=== PATIENT | male | born 1975 | race Two or more races ===

== ENCOUNTER → 2016-10-19 | Outpatient (CLI) | payer BC ==
[2016-10-19 08:27] LABS: Basophils # (auto) 0 uL; Basophils % (auto) 0.4 % (0.0-2.0); Eosinophils # (auto) 0.1 uL; Eosinophils % (auto) 1.8 % (0.0-7.0); Hematocrit 47.7 % (41.0-53.0); Hemoglobin 15.9 g/dL (13.5-17.5); Lymphocytes # (auto) 2.9 uL; Lymphocytes % (auto) 34.6 % (10.0-50.0); Mean Corpuscular Hemoglobin 28.4 pg (28.0-32.0); Mean Corpuscular Hgb Conc. 33.3 g/dL (32.0-36.0); Mean Corpuscular Volume 85.3 fL (80.0-100.0); Monocytes # (auto) 0.6 uL; Monocytes % (auto) 7.5 % (0.0-12.0); Neutrophils # (auto) 4.7 uL; Neutrophils % (auto) 55.7 % (37.0-80.0); Platelet Count (auto) 279 10^3/uL (140-450); Red Cell Distribution Width 13.7 % (11.6-16.0); White Blood Cell 8.4 10^3/uL (4.4-10.8)
[2016-10-19 08:45] LABS: Urine Bilirubin Negative (Negative); Urine Blood Negative /uL (Negative); Urine Color Yellow (Yellow); Urine Glucose Normal (Normal); Urine Ketone Negative (Negative); Urine Mucus FEW (None Seen); Urine Nitrite Negative (Negative); Urine RBC <1 /hpf (0 - 3); Urine Urobilinogen Normal (Negative); Urine pH 5.5 (5.0-8.0)
[2016-10-19 09:04] LABS: Albumin 3.7 g/dL (3.4-5.0); BUN/Creatinine Ratio 16.7; Calcium 8.7 mg/dL (8.5-10.1); Total Protein 8.1 g/dL (6.4-8.2)
== END | disposition home or self-care (01) ==
LOC: LAB 07:42
DX: E78.5 Hyperlipidemia, unspecified (principal)
CPT/HCPCS: 36415; 80053; 80061; 81001; 84443; 85025

== ENCOUNTER 2017-06-01 20:15 | Emergency (ER) | payer BC ==
[~2017-06-01] VITALS: Ht 172.7 cm; Wt 108.9 kg
[2017-06-01 21:15] LABS: Basophils # (auto) 0 uL; Basophils % (auto) 0.3 % (0.0-2.0); Eosinophils # (auto) 0 uL; Eosinophils % (auto) 0.4 % (0.0-7.0); Lymphocytes % (auto) 10.9 % (10.0-50.0); Mean Corpuscular Hemoglobin 29.2 pg (28.0-32.0); Mean Corpuscular Hgb Conc. 33.9 g/dL (32.0-36.0); Mean Platelet Volume 7.5 fL (6.9-10.8); Monocytes # (auto) 1.2 uL; Neutrophils # (auto) 6.6 uL; Neutrophils % (auto) 74.4 % (37.0-80.0); Nucleated Red Blood Cells % 0.1 %; Platelet Count (auto) 273 10^3/uL (140-450); Red Cell Distribution Width 15.6 % (11.8-14.3); White Blood Cell 8.9 10^3/uL (4.4-10.8)
[2017-06-01 21:26] LABS: Urine Bilirubin Negative (Negative); Urine Blood Negative /uL (Negative); Urine Color Yellow (Yellow); Urine Glucose Normal (Normal); Urine Ketone Negative (Negative); Urine Mucus FEW (None Seen); Urine Nitrite Negative (Negative); Urine RBC 1 /hpf (0 - 3); Urine Squamous Epithelial Cell FEW /hpf (<5)
[2017-06-01 21:34] LABS: Albumin 3.4 g/dL (3.4-5.0); Calcium 8.3 mg/dL (8.5-10.1); Magnesium 2.1 mg/dL (1.6-2.6)
[2017-06-01 21:36] LABS: BUN/Creatinine Ratio 9.3
[2017-06-01 21:38] LABS: Bilirubin, Total 0.8 mg/dL (0.2-1.0); Total Protein 7.9 g/dL (6.4-8.2)
[2017-06-02 02:00] VITALS: BP 150/99
== END 2017-06-02 02:08 | disposition home or self-care (01) ==
LOC: ER 20:18
DX: R14.1 Gas pain (principal); K21.9 Gastro-esophageal reflux disease without esophagitis; J45.909 Unspecified asthma, uncomplicated; Z91.041 Radiographic dye allergy status
CPT/HCPCS: 36415; 74176; 80053; 81001; 83690; 83735; 85025

== ENCOUNTER 2020-06-28 13:52 | Inpatient (IN) | payer BC, OTHER ==
[~2020-06-28] VITALS: Ht 172.7 cm; Wt 109.0 kg
[2020-06-28] MEDS ORDERED: levoFLOXacin 500MG 100 ML IV ONE (14:00)
[2020-06-28] MEDS ORDERED: cefTRIAXone 1GM/50ML D5W 50 ML IV ONE (14:00)
[2020-06-28] MEDS ORDERED: methylPREDNISolone SOD SUCC 125 MG/2 ML VL IV ONE ×2 (14:00→15:15)
[2020-06-28 14:52] LABS: Basophils # (auto) 0 10 ^3/uL (0-0.2); Eosinophils # (auto) 0 10 ^3/uL (0-0.8); Monocytes # (auto) 0.9 10 ^3/uL (0-1.3); Monocytes % (auto) 6.1 % (0.0-12.0); Red Cell Distribution Width 13.9 % (11.8-14.3)
[2020-06-28 14:54] LABS: Basophils % (auto) 0.1 % (0.0-2.0); Hematocrit 53.1 % (41.0-53.0); Hemoglobin 18.3 g/dL (13.5-17.5); Lymphocytes % (auto) 7.2 % (10.0-50.0); Mean Corpuscular Hemoglobin 29.5 pg (28.0-32.0); Mean Corpuscular Hgb Conc. 34.4 g/dL (32.0-36.0); Mean Corpuscular Volume 85.8 fL (80.0-100.0); Neutrophils # (auto) 12.5 10 ^3/uL (1.6-8.6); Neutrophils % (auto) 86.6 % (37.0-80.0); Nucleated Red Blood Cells % 0.4 %; Platelet Count (auto) 251 10^3/uL (140-450); Red Blood Cells 6.19 10^6/uL (4.5-5.90); White Blood Cell 14.4 10^3/uL (4.4-10.8)
[2020-06-28 15:09] LABS: Alanine Aminotransferase 49 U/L (16-61); Albumin 3.2 g/dL (3.4-5.0); Anion Gap 4 (5-15); Blood Urea Nitrogen 17 mg/dL (7-18); Calcium 8.7 mg/dL (8.5-10.1); Carbon Dioxide 28 mmol/L (21-32); Chloride 101 mmol/L (98-107); Glucose 84 mg/dL (74-106); Potassium 3.5 mmol/L (3.5-5.1); Sodium 133 mmol/L (136-145)
[2020-06-28 15:18] LABS: Alkaline Phosphatase 99 U/L (45-117); Aspartate Aminotransferase 21 U/L (15-37); BUN/Creatinine Ratio 20.2; Bilirubin, Total 1.2 mg/dL (0.2-1.0); GFR African American 128 mL/min; GFR Non-African American 106 mL/min; Total Protein 8.5 g/dL (6.4-8.2)
[2020-06-28] MEDS ORDERED: ONDANSETRON HCL 4 MG/2 ML VIAL IV ONE (15:30)
[2020-06-28] MEDS ORDERED: MORPHINE SULFATE 4 MG/ML SYR/VIAL IV ONE (15:30)
[2020-06-28] MEDS ORDERED: ACETAMINOPHEN 500 MG TAB PO ONE ×2 (15:43→15:45)
[2020-06-28] MEDS ORDERED: MORPHINE SULF INJ 2 MG/ML SYRINGE 1ML IV PRN ×2 (15:45→16:15)
[2020-06-28] MEDS ORDERED: NITROGLYCERIN 0.4 MG SL TAB SL PRN (15:45)
[2020-06-28] MEDS ORDERED: ACETAMINOPHEN 500 MG TAB PO PRN (16:15)
[2020-06-28] MEDS ORDERED: LACTULOSE 20Gm/30ML SOLN PO PRN (16:15)
[2020-06-28] MEDS ORDERED: traMADol HCL 50 MG TAB PO PRN (16:15)
[2020-06-28] MEDS ORDERED: SODIUM CHLORIDE 0.9% 1,000 ML IV SCH (16:15)
[2020-06-28] MEDS ORDERED: PROMETHAZINE HCL 25 MG/ML 1ML IV PRN (16:15)
[2020-06-28] MEDS ORDERED: ALBUTEROL SULF 2.5 MG/0.5ML(0.5%) NEB SOLN NEB PRN (16:15)
[2020-06-28] MEDS ORDERED: levoFLOXacin 500MG 100 ML IV SCH (16:22)
[2020-06-28] MEDS: ASCORBIC ACID 1,000 MG TAB PO SCH (16:33)
[2020-06-28] MEDS: ENOXAPARIN SOD 100 MG/1 ML SYRINGE SC SCH (16:33)
[2020-06-28] MEDS: CHOLECALCIFEROL (VITD3) 2,000 UNIT CAP PO SCH (16:34)
--- NOTE | 2020-06-28 17:44 | NUR ---
Telemetry admit from [facility] admitted to Telemetry unit after SBAR received. Patient oriented to ALEXIS ARCHULETA, RN primary RN, unit, room, bed, and unit policies regarding patient care and visiting hours. Patient now on continuous telemetry monitoring, tele box # 13 and telemetry reading on arrival to unit is SINUS RYHTHM. Patient placed on bedside oxygen, weighed by bedscale and encouraged to call if they need something. All questions and concerns addressed, patient verbalized understanding. Note:
[2020-06-28 17:45] VITALS: BP 111/75
[2020-06-28] MEDS ORDERED: IPRATROPIUM BROM 0.5 MG/2.5ML INH SOL NEB SCH (18:00)
[2020-06-28] MEDS ORDERED: ALBUTEROL SULF 2.5 MG/0.5ML(0.5%) NEB SOLN NEB SCH (18:00)
[2020-06-28] MEDS: DexAMETHasone SOD PHOS 4 MG/1ML SDV INJ IV SCH ×2 (18:28→23:42)
--- NOTE | 2020-06-28 18:43 | NUR ---
SPOKE TO [facility] LOCO. INFORMED OF PATIENT STATUS AND THAT PATIENT HAS NOT RECEIVED A COVID SWAB AT THIS HOSPITAL. PER [facility] LOCO PATIENT DOES NOT NEED TO BE RESWABBED AT THIS TIME. RECEIVED ORDERS FOR CONVALESCENT PLASMA. TORB. WILL FOLLOW THROUGH.
--- NOTE | 2020-06-28 19:30 | NUR ---
OPENING NOTE Received report from day shift RN. Patient is A&O X's 4 with no s/s of distress and reports no pain. Patient reporting SOB with exertion and a dry cough and general fatigue. Patient receiving 6L oxymizer at this time. O2 sat is ranging in mid 90's. Continuous pulse ox is on patient. Educated patient on POC/ use of IS/ and to use call light when in need of any assistance. Patient verbalized understanding. Bed is in lowest/locked position with side rails up X's 2 and call light is within reach of patient. Will continue care.
[2020-06-28 21:25] VITALS: BP 110/68
[2020-06-28] MEDS: CLINDAMYCIN 600MG IV 50 ML IV SCH (21:37)
[2020-06-28] MEDS: FAMOTIDINE 20 MG TAB PO SCH (21:38)
[2020-06-28 21:42] VITALS: BP 110/68
[2020-06-28 21:49] VITALS: BP 110/68
[2020-06-28] MEDS: ALBUTEROL SULF HFA 90MCG INH 200DOSE IN SCH (21:54)
[2020-06-28] MEDS: BUDESONIDE (INHALATION) 180 MCG IH IN SCH (21:54)
[2020-06-29] VITALS (11 sets, daily range): BP systolic 95–117; BP diastolic 60–76
[2020-06-29] MEDS: ALBUTEROL SULF HFA 90MCG INH 200DOSE IN SCH ×3 (05:52→21:16)
[2020-06-29] MEDS: BUDESONIDE (INHALATION) 180 MCG IH IN SCH ×2 (05:52→21:17)
[2020-06-29] MEDS: DexAMETHasone SOD PHOS 4 MG/1ML SDV INJ IV SCH (05:54)
[2020-06-29] MEDS: CLINDAMYCIN 600MG IV 50 ML IV SCH (05:55)
--- NOTE | 2020-06-29 06:53 | NUR ---
END OF SHIFT NOTE patient sitting in bed with HOB elevated watching TV. Patient receiving 7L O2 via oxymizer. O2 saturation is 90% at this time. Respirations are even and unlabored. Will endorse care. Convalescent plasma still pending at this time. Waiting for MD to discuss risks and benefits to patient and MD signature. Will inform day shift RN that plasma is now ready just to call lab for it to be thawed.
[2020-06-29 09:42] LABS: Basophils # (auto) 0 10 ^3/uL (0-0.2); Eosinophils # (auto) 0 10 ^3/uL (0-0.8); Hemoglobin 16.3 g/dL (13.5-17.5); Lymphocytes # (auto) 0.5 10 ^3/uL (0.4-5.4); Lymphocytes % (auto) 3.8 % (10.0-50.0); Mean Corpuscular Hemoglobin 28.9 pg (28.0-32.0); Mean Corpuscular Hgb Conc. 33.3 g/dL (32.0-36.0); Mean Corpuscular Volume 86.8 fL (80.0-100.0); Monocytes # (auto) 0.2 10 ^3/uL (0-1.3); Monocytes % (auto) 1.6 % (0.0-12.0); Neutrophils # (auto) 12.6 10 ^3/uL (1.6-8.6); Neutrophils % (auto) 94.6 % (37.0-80.0); Platelet Count (auto) 240 10^3/uL (140-450); Red Blood Cells 5.65 10^6/uL (4.5-5.90); Red Cell Distribution Width 13.5 % (11.8-14.3); White Blood Cell 13.3 10^3/uL (4.4-10.8)
[2020-06-29] MEDS: ASCORBIC ACID 1,000 MG TAB PO SCH (09:42)
[2020-06-29] MEDS: levoFLOXacin 500MG 100 ML IV SCH (09:42)
[2020-06-29] MEDS: CHOLECALCIFEROL (VITD3) 2,000 UNIT CAP PO SCH (09:42)
[2020-06-29] MEDS: FAMOTIDINE 20 MG TAB PO SCH ×2 (09:42→21:00)
[2020-06-29] MEDS: ENOXAPARIN SOD 100 MG/1 ML SYRINGE SC SCH ×2 (09:42→20:59)
[2020-06-29] MEDS ORDERED: DexAMETHasone SOD PHOS 10MG/1ML VIAL INJ IV SCH (10:00)
[2020-06-29 10:03] LABS: Calcium 8.6 mg/dL (8.5-10.1)
[2020-06-29 10:08] LABS: Albumin 2.7 g/dL (3.4-5.0); BUN/Creatinine Ratio 26.2; Bilirubin, Total 0.8 mg/dL (0.2-1.0); Total Protein 7.6 g/dL (6.4-8.2)
--- NOTE | 2020-06-29 11:37 | NUR ---
[facility]oss[facility] ROUNDING: Josseline KNUTSON AT BEDSIDE. INFORMED OF PATIENT STATUS. INFORMED OF PATIENT SERUM GLUCOSE BEING ELEVATED. INFORMED OF INCREASING OXYGEN DEMAND. RECEIVED NEW ORDERS. SEE EMAR.
[2020-06-29] MEDS ORDERED: DEXTROSE (50%) 50ML SYRG IV PRN (12:00)
--- NOTE | 2020-06-29 12:28 | NUR ---
COVID SWAB COLLECTED AND WALKED TO LAB.
[2020-06-29 14:11] LABS: Urine Bacteria NONE SEEN /hpf (None Seen); Urine Blood Negative /uL (Negative); Urine Mucus FEW (None Seen); Urine Specific Gravity 1.035 (1.001-1.035); Urine WBC 1 /hpf (0 - 3)
--- NOTE | 2020-06-29 14:58 | NUR ---
REGARDING PLASMA: CALLED REGARDING CONVALESCENT PLASMA. PER BLOOD BANK TECH, DURING THE THAWING PROCESS THE PLASMA BAG RIPPED AND PLASMA IS NOW UNUSABLE WILL WAIT FOR NEW BAG OF PLASMA TO ARRIVE.
[2020-06-29] MEDS ORDERED: REMDESIVIR 200 MG in NS 210ml LOADING DOSE ADULT IV ONE (17:00)
[2020-06-29] MEDS: ACCU-CHEK COMFORT CURVE STRIP VI SCH ×2 (17:00→20:59)
[2020-06-29] MEDS: InsuLIN REG 1unit/0.01ml Soln (100units/ml) SC SCH ×2 (17:41→20:58)
--- NOTE | 2020-06-29 19:20 | NUR ---
OPENING NOTE Received report from day shift RN. Patient is A&O X's 4 showing some SOB. Patient reports just coughing after sitting up and feels SOB. Patient receiving 8L O2 via oxymizer saturation is ranging in the high 80's (88%). Increased to 9.5L. O2 saturation is now at 89-90%. Will monitor and titrate as needed. Encouraged patient to self prone as tolerated and use IS that is at bedside. Patient verbalized understanding. Respirations are even and unlabored, no use of accessory muscles. Educated patient to use call light when in need of any assistance/changes in symptoms. Patient verbalized understanding. Bed is in lowest/locked position with side rails up X's 2 and call light is within reach of patient. Will continue care.
--- NOTE | 2020-06-29 22:08 | NUR ---
CONVALESCENT PLASMA Convalescent plasma is being infused as ordered. Consents are signed and in chart. Will infuse and assess per protocol. Patient verbalized understanding and has no questions at this time.
--- NOTE | 2020-06-29 23:41 | NUR ---
END OF TRANSFUSION CONVALESCENT PLASMA ENDED. PATIENT DENIES ANY SYMPTOMS/REACTIONS. NO REACTIONS SEEN. WILL CONTINUE CARE.
[2020-06-30 00:30] VITALS: BP_SYST 92; BP_SYST 96; BP_DIAS 50
[2020-06-30 05:00] VITALS: BP 90/51
[2020-06-30] MEDS: ALBUTEROL SULF HFA 90MCG INH 200DOSE IN SCH ×3 (06:05→20:39)
[2020-06-30] MEDS: BUDESONIDE (INHALATION) 180 MCG IH IN SCH ×2 (06:05→20:39)
[2020-06-30] MEDS: InsuLIN REG 1unit/0.01ml Soln (100units/ml) SC SCH ×4 (06:32→21:23)
[2020-06-30] MEDS: ACCU-CHEK COMFORT CURVE STRIP VI SCH ×4 (06:37→21:23)
[2020-06-30 07:12] LABS: Basophils # (auto) 0 10 ^3/uL (0-0.2); Eosinophils # (auto) 0 10 ^3/uL (0-0.8); Hematocrit 46.4 % (41.0-53.0); Hemoglobin 16.1 g/dL (13.5-17.5); Lymphocytes # (auto) 0.8 10 ^3/uL (0.4-5.4); Lymphocytes % (auto) 4.4 % (10.0-50.0); Mean Corpuscular Hemoglobin 29.6 pg (28.0-32.0); Mean Corpuscular Hgb Conc. 34.7 g/dL (32.0-36.0); Mean Corpuscular Volume 85.5 fL (80.0-100.0); Monocytes # (auto) 0.8 10 ^3/uL (0-1.3); Monocytes % (auto) 4.5 % (0.0-12.0); Neutrophils # (auto) 15.4 10 ^3/uL (1.6-8.6); Neutrophils % (auto) 91.1 % (37.0-80.0); Nucleated Red Blood Cells % 0.3 %; Platelet Count (auto) 288 10^3/uL (140-450); Red Blood Cells 5.43 10^6/uL (4.5-5.90); Red Cell Distribution Width 13.7 % (11.8-14.3); White Blood Cell 16.9 10^3/uL (4.4-10.8)
[2020-06-30 07:25] LABS: BUN/Creatinine Ratio 33.3; Calcium 8.3 mg/dL (8.5-10.1); Potassium 4.4 mmol/L (3.5-5.1)
[2020-06-30 08:00] VITALS: BP 93/66
[2020-06-30] MEDS: FAMOTIDINE 20 MG TAB PO SCH ×2 (09:40→21:23)
[2020-06-30] MEDS: ASCORBIC ACID 1,000 MG TAB PO SCH (09:41)
[2020-06-30] MEDS: CHOLECALCIFEROL (VITD3) 2,000 UNIT CAP PO SCH (09:41)
[2020-06-30] MEDS: levoFLOXacin 500MG 100 ML IV SCH (09:43)
[2020-06-30] MEDS: DexAMETHasone SOD PHOS 4 MG/1ML SDV INJ IV SCH (09:43)
[2020-06-30] MEDS: ENOXAPARIN SOD 100 MG/1 ML SYRINGE SC SCH ×2 (09:44→21:23)
[2020-06-30 12:00] VITALS: BP 107/71
[2020-06-30] MEDS: CALCIUM CARB 500 MG CHEW TAB PO SCH ×2 (12:08→18:05)
--- NOTE | 2020-06-30 16:00 | NUR ---
IV removal IV occluded and removed with sterile technique, catheter fully intact. Pressure dressing applied to site. Patient tolerated procedure well IV insertion IV access obtained, via clean sterile technique by inserting 20 gauge catheter at left forearm after 2 attempts. IV secured properly. No trauma to site. Patient tolerated well. NOTE:
--- NOTE | 2020-06-30 16:05 | NUR ---
POST REMDESIVIR VITALS 97.9 66HR 18 RR 92%116/72.
[2020-06-30 16:58] VITALS: BP 102/67
--- NOTE | 2020-06-30 17:00 | NUR ---
PRE REMDESIVIR VITALS 98.3 66HR 18 RR 93%102/67.
[2020-06-30] MEDS: REMDESIVIR 100mg in NS 230ml DAILYx4DAYS (NO VENT) IV SCH (17:03)
--- NOTE | 2020-06-30 17:15 | NUR ---
15 MINUTES DURING REMDESIVIR VITALS 98.3 60HR 18 RR 92%106/75 NO S/S OF DISTRESS NOTED
--- NOTE | 2020-06-30 18:05 | NUR ---
POST REMDESIVIR VITALS 97.9 66HR 18 RR 92%116/72. Addendum: 06/30/20 at 1856 by ADNDRE ADAMS RN RN WRONG TIME 1805 CORRECT TIME
--- NOTE | 2020-06-30 19:10 | NUR ---
1 HOUR POST REMDESIVIR VITALS 105/70 B/P 68HR 93% 98.1 RR 18. NO S/S OF DISTRESS NOTED
--- NOTE | 2020-06-30 19:30 | NUR ---
OPENING NOTE Received report from day shift RN. Patient is A&O X's 4 with no s/s of distress and reports no pain. Patient currently receiving 10L via oxymizer and O2 sat is 93%. Educated patient on POC and to use call light when in need of any assistance. Educated patient to prone as tolerated and use IS that is at bedside. Patient verbalized understanding and reports being active with the IS and self proning. Bed is in lowest/locked position with side rails up X's 2 and call light is within reach of patient. Will continue care.
[2020-06-30 22:04] VITALS: BP 99/62
[2020-07-01 04:46] VITALS: BP 107/64
[2020-07-01] MEDS: InsuLIN REG 1unit/0.01ml Soln (100units/ml) SC SCH ×4 (06:12→22:08)
[2020-07-01] MEDS: BUDESONIDE (INHALATION) 180 MCG IH IN SCH ×2 (06:27→21:25)
[2020-07-01] MEDS: ALBUTEROL SULF HFA 90MCG INH 200DOSE IN SCH ×3 (06:27→21:25)
[2020-07-01] MEDS: ACCU-CHEK COMFORT CURVE STRIP VI SCH ×4 (06:28→22:07)
[2020-07-01 06:49] LABS: Potassium 4.5 mmol/L (3.5-5.1)
[2020-07-01 06:53] LABS: Hematocrit 47.7 % (41.0-53.0); Mean Corpuscular Hgb Conc. 33.5 g/dL (32.0-36.0); Mean Corpuscular Volume 86.8 fL (80.0-100.0); Platelet Count (auto) 300 10^3/uL (140-450); Red Cell Distribution Width 13.7 % (11.8-14.3)
[2020-07-01 06:58] LABS: Albumin 2.5 g/dL (3.4-5.0); BUN/Creatinine Ratio 27.6; Bilirubin, Total 0.6 mg/dL (0.2-1.0); Calcium 8.5 mg/dL (8.5-10.1); Total Protein 6.9 g/dL (6.4-8.2)
[2020-07-01 06:59] LABS: Basophils % (manual) 0 (0.0-2.0); Blast Cells 0; Eosinophils % (manual) 0 (0-7); Metamyelocytes % 0; Myelocytes % 0; Promyelocytes % 0; Reactive Lymphocytes 0
[2020-07-01 07:48] LABS: Band Neutrophils % (manual) 7; Lymphocytes % (manual) 9 (10.0-50.0); Monocytes % (manual) 2 (0-12)
[2020-07-01] MEDS: CALCIUM CARB 500 MG CHEW TAB PO SCH ×3 (08:15→17:43)
[2020-07-01 08:52] VITALS: BP 95/66
[2020-07-01] MEDS: DexAMETHasone SOD PHOS 4 MG/1ML SDV INJ IV SCH (09:14)
[2020-07-01] MEDS: ENOXAPARIN SOD 100 MG/1 ML SYRINGE SC SCH ×2 (09:15→22:07)
[2020-07-01] MEDS: FAMOTIDINE 20 MG TAB PO SCH ×2 (09:16→22:07)
[2020-07-01] MEDS: CHOLECALCIFEROL (VITD3) 2,000 UNIT CAP PO SCH (09:16)
[2020-07-01] MEDS: levoFLOXacin 500MG 100 ML IV SCH (09:17)
[2020-07-01] MEDS: ASCORBIC ACID 1,000 MG TAB PO SCH (09:17)
--- NOTE | 2020-07-01 10:39 | NUR ---
assessment Patient is a 45 year old male who is in the covid unit on 10L Oxymizer. Per patients Marilou prior to admission patient lived home with her and family and was independent. Patient does use home oxygen at night per Marilou. 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 Per Marilou she called 911 when patients cough, shortness of breath and fever had gotten worse. I informed Marilou I will continue to monitor and follow up as appropriate for any post discharge needs. Marilou verbalized understanding and agreed to discharge plan home. Addendum: 07/01/20 at 1100 by Rowena SILVA Amended: Links added.
[2020-07-01] MEDS ORDERED: FUROSEMIDE 20 MG/2 ML VIAL IV ONE (10:45)
[2020-07-01] MEDS ORDERED: POTASSIUM CHL 20 Meq TABLET PO ONE (10:45)
[2020-07-01 13:00] VITALS: BP 114/75
[2020-07-01] MEDS: REMDESIVIR 100mg in NS 230ml DAILYx4DAYS (NO VENT) IV SCH (16:46)
--- NOTE | 2020-07-01 16:46 | NUR ---
PRE REMDESIVIR VITALS 97.9 64HR 18 RR 93%107/70.
[2020-07-01 17:00] VITALS: BP 104/70
--- NOTE | 2020-07-01 17:00 | NUR ---
15 MINUTE REMDESIVIR VITALS 97.6 64HR 18 RR 93% Hr 98/72. NO S/S OF DISTRESS NOTED.
--- NOTE | 2020-07-01 17:55 | NUR ---
POST REMDESIVIR VITALS 97.9 56HR 18 RR 95% Hr 102/70. NO S/S OF DISTRESS NOTED.
--- NOTE | 2020-07-01 19:00 | NUR ---
1 hour POST REMDESIVIR VITALS 98.3 68HR 18 RR 93% Hr 100/68. NO S/S OF DISTRESS NOTED
--- NOTE | 2020-07-01 19:30 | NUR ---
Opening Shift Note Assumed care of patient, awake and alert. No S/S of distress/SOB or pain. Instructed on POC and to call for assist PRN. Bed in lowest locked position, call light within reach, side rails up x2. Will continue to monitor for changes Q1hr and PRN.
--- NOTE | 2020-07-01 21:25 | NUR ---
PT RINSED OUT HIS MOUTH POST PULMICORT TX Addendum: 07/01/20 at 2304 by CAN SANCHEZ RT Amended: Links added.
[2020-07-01 22:00] VITALS: BP 108/65
[2020-07-01 23:43] VITALS: BP 108/65
[2020-07-02] VITALS (7 sets, daily range): BP systolic 90–110; BP diastolic 51–78
[2020-07-02 06:23] LABS: Albumin 2.5 g/dL (3.4-5.0); Calcium 8.3 mg/dL (8.5-10.1); Potassium 4.3 mmol/L (3.5-5.1)
[2020-07-02 06:26] LABS: BUN/Creatinine Ratio 29.3
[2020-07-02 06:28] LABS: Bilirubin, Total 0.5 mg/dL (0.2-1.0); Total Protein 6.9 g/dL (6.4-8.2)
[2020-07-02] MEDS: ACCU-CHEK COMFORT CURVE STRIP VI SCH ×4 (06:40→21:38)
[2020-07-02] MEDS: InsuLIN REG 1unit/0.01ml Soln (100units/ml) SC SCH ×4 (06:45→21:38)
--- NOTE | 2020-07-02 07:49 | NUR ---
Opening Shift Note Assumed care of patient, awake and alertx4. Breath sounds even and unlabored, on 8L Oxymizer. No S/S of distress/SOB or pain. Instructed on POC and to call for assist PRN. Bed at lowest locked position and call light within reach. Will continue to monitor for changes Q1hr and PRN.
[2020-07-02] MEDS: CALCIUM CARB 500 MG CHEW TAB PO SCH ×3 (08:00→17:58)
[2020-07-02] MEDS: ALBUTEROL SULF HFA 90MCG INH 200DOSE IN SCH ×3 (09:27→21:23)
[2020-07-02] MEDS: BUDESONIDE (INHALATION) 180 MCG IH IN SCH ×2 (09:27→21:23)
[2020-07-02] MEDS: CHOLECALCIFEROL (VITD3) 2,000 UNIT CAP PO SCH (10:00)
[2020-07-02] MEDS: DexAMETHasone SOD PHOS 4 MG/1ML SDV INJ IV SCH (10:00)
[2020-07-02] MEDS: ENOXAPARIN SOD 100 MG/1 ML SYRINGE SC SCH ×2 (10:00→21:38)
[2020-07-02] MEDS: ASCORBIC ACID 1,000 MG TAB PO SCH (10:00)
[2020-07-02] MEDS: FAMOTIDINE 20 MG TAB PO SCH ×2 (10:00→21:38)
[2020-07-02] MEDS: levoFLOXacin 500MG 100 ML IV SCH (10:00)
--- NOTE | 2020-07-02 11:00 | NUR ---
IV removal/leaking IV DC'd with clean sterile technique, catheter fully intact. Pressure dressing applied to site. Patient tolerated well.
--- NOTE | 2020-07-02 12:09 | NUR ---
Nutrition Assessment Note please see attached link for complete assessment Est energy needs ABW [id number] kcal (20-23kcal/kg ABW) Est protein needs: 90-99g (1.0-1.1g/kg ABW) Will monitor and reassess prn. . Addendum: 07/02/20 at [address] Amended: Links added.
--- NOTE | 2020-07-02 12:30 | NUR ---
Dr. East at bedside.
[2020-07-02] MEDS ORDERED: FUROSEMIDE 20 MG/2 ML VIAL IV ONE (12:45)
[2020-07-02] MEDS ORDERED: POTASSIUM CHL 20 Meq TABLET PO ONE (12:45)
--- NOTE | 2020-07-02 17:00 | NUR ---
Started Remdesivir, per MD orders. Vs:T98.5, HR, 58, RR18, BP 91/50 patient is tolerating well, no s/s of distress/sob noted/stated. Will continue to monitor.
[2020-07-02] MEDS: REMDESIVIR 100mg in NS 230ml DAILYx4DAYS (NO VENT) IV SCH (17:05)
--- NOTE | 2020-07-02 17:15 | NUR ---
VS: BP 99/66, hr 63, RR 18. No s/s of distress/sob noted stated. Will continue to monitor. Addendum: 07/02/20 at 1859 by Ester Aguirre RN 18:15 Remdesivir complete VS: BP 123/71, HR 59, RR17, Spo2 93%. No s/s of distress/sob noted/stated. Will continue to monitor.
--- NOTE | 2020-07-02 19:30 | NUR ---
Care endorsed to NOC AZEB Cantu.
--- NOTE | 2020-07-02 19:55 | NUR ---
Opening Shift Note Assumed care of patient, awake and alert. No S/S of distress/SOB or pain. Instructed on POC and to call for assist PRN, will continue to monitor for changes Q1hr and PRN.
[2020-07-02] MEDS: TEMAZEPAM 15 MG CAP PO PRN (21:38)
[2020-07-03 05:00] VITALS: BP 101/60
[2020-07-03] MEDS: ALBUTEROL SULF HFA 90MCG INH 200DOSE IN SCH ×3 (06:16→22:25)
[2020-07-03] MEDS: BUDESONIDE (INHALATION) 180 MCG IH IN SCH ×2 (06:17→22:25)
[2020-07-03] MEDS: ACCU-CHEK COMFORT CURVE STRIP VI SCH ×4 (06:33→21:57)
[2020-07-03] MEDS: InsuLIN REG 1unit/0.01ml Soln (100units/ml) SC SCH ×4 (06:34→21:59)
[2020-07-03 08:00] VITALS: BP 100/71
[2020-07-03 09:00] VITALS: BP 100/71
[2020-07-03] MEDS: CALCIUM CARB 500 MG CHEW TAB PO SCH ×3 (10:04→18:02)
[2020-07-03] MEDS: DexAMETHasone SOD PHOS 4 MG/1ML SDV INJ IV SCH (10:04)
[2020-07-03] MEDS: levoFLOXacin 500MG 100 ML IV SCH (10:05)
[2020-07-03] MEDS: CHOLECALCIFEROL (VITD3) 2,000 UNIT CAP PO SCH (10:05)
[2020-07-03] MEDS: ASCORBIC ACID 1,000 MG TAB PO SCH (10:05)
[2020-07-03] MEDS: FAMOTIDINE 20 MG TAB PO SCH ×2 (10:05→21:57)
[2020-07-03] MEDS: ENOXAPARIN SOD 100 MG/1 ML SYRINGE SC SCH ×2 (10:06→21:57)
--- NOTE | 2020-07-03 10:50 | NUR ---
Dr. East at bedside.
[2020-07-03] MEDS ORDERED: POTASSIUM CHL 20 Meq TABLET PO ONE (11:00)
[2020-07-03] MEDS ORDERED: FUROSEMIDE 20 MG/2 ML VIAL IV ONE (11:00)
[2020-07-03 13:00] VITALS: BP 111/85
[2020-07-03 17:00] VITALS: BP 101/65
[2020-07-03] MEDS: REMDESIVIR 100mg in NS 230ml DAILYx4DAYS (NO VENT) IV SCH (17:34)
--- NOTE | 2020-07-03 17:35 | NUR ---
Started Remdesivir, per MD orders. Vs:T98.2, HR, 66bpm, RR20, BP 101/65. patient is tolerating treatment well, no s/s of distress/sob noted/stated. Will continue to monitor. Addendum: 07/03/20 at 1804 by Ester Aguirre RN 1755 BP 111/73bpm, 61bpm Addendum: 07/03/20 at 1850 by Ester Aguirre RN Remdesivir infusion ended. Bp. 95/65bpm Hr 74bpm. patient tolerated well
--- NOTE | 2020-07-03 19:08 | NUR ---
Closing shift note Patient is comfortably resting in bed, no s/s of distress/noted/stated, on 5L Oxymizer. Will endorse care endorsed to NOC RN
[2020-07-03] MEDS: TEMAZEPAM 15 MG CAP PO PRN (21:58)
[2020-07-03 22:00] VITALS: BP 101/68
[2020-07-04 05:00] VITALS: BP 98/69
[2020-07-04] MEDS: ACCU-CHEK COMFORT CURVE STRIP VI SCH ×4 (06:05→21:54)
[2020-07-04] MEDS: InsuLIN REG 1unit/0.01ml Soln (100units/ml) SC SCH ×4 (06:06→22:07)
[2020-07-04 06:44] LABS: Basophils # (auto) 0 10 ^3/uL (0-0.2); Basophils % (auto) 0.2 % (0.0-2.0); Eosinophils # (auto) 0 10 ^3/uL (0-0.8); Hematocrit 49.2 % (41.0-53.0); Hemoglobin 16.7 g/dL (13.5-17.5); Lymphocytes # (auto) 0.9 10 ^3/uL (0.4-5.4); Lymphocytes % (auto) 6.6 % (10.0-50.0); Mean Corpuscular Hemoglobin 29.1 pg (28.0-32.0); Mean Corpuscular Hgb Conc. 33.9 g/dL (32.0-36.0); Mean Corpuscular Volume 85.8 fL (80.0-100.0); Monocytes # (auto) 0.7 10 ^3/uL (0-1.3); Monocytes % (auto) 5.2 % (0.0-12.0); Neutrophils # (auto) 12.2 10 ^3/uL (1.6-8.6); Platelet Count (auto) 301 10^3/uL (140-450); Red Blood Cells 5.73 10^6/uL (4.5-5.90); Red Cell Distribution Width 13.7 % (11.8-14.3); White Blood Cell 13.8 10^3/uL (4.4-10.8)
[2020-07-04 07:29] LABS: Potassium 4.1 mmol/L (3.5-5.1)
--- NOTE | 2020-07-04 07:29 | NUR ---
closing note pt resting in right lateral position. pt is on 5L oxymizer. no s/s of respiratory distress. endorsed care to day shift RN Alejandra.
[2020-07-04 07:37] LABS: BUN/Creatinine Ratio 28.2; Calcium 8.4 mg/dL (8.5-10.1)
[2020-07-04] MEDS: ALBUTEROL SULF HFA 90MCG INH 200DOSE IN SCH ×3 (07:50→20:20)
[2020-07-04] MEDS: BUDESONIDE (INHALATION) 180 MCG IH IN SCH ×2 (07:50→20:20)
[2020-07-04 08:00] VITALS: BP 95/65
--- NOTE | 2020-07-04 08:00 | NUR ---
ASSESSMENT NOTE PT IS ALERT ORIENTED X4, RESTING IN BED COMFORTABLY, 5L OXYMIZER, NO SHORTNESS OF BREATH NOTED, COUGH, DENIES CHEST PAIN 0/10, ABLE TO SELF REPOSITION AND VERBALIS HER NEEDS, CALL LIGHT WITHIN REACH
[2020-07-04] MEDS: CALCIUM CARB 500 MG CHEW TAB PO SCH ×3 (08:17→17:26)
[2020-07-04 09:00] VITALS: BP 97/66
[2020-07-04] MEDS: FAMOTIDINE 20 MG TAB PO SCH ×2 (09:12→21:54)
[2020-07-04] MEDS: DexAMETHasone SOD PHOS 4 MG/1ML SDV INJ IV SCH (09:12)
[2020-07-04] MEDS: levoFLOXacin 500 MG TAB PO SCH (09:12)
[2020-07-04] MEDS: ENOXAPARIN SOD 100 MG/1 ML SYRINGE SC SCH ×2 (09:13→21:54)
[2020-07-04] MEDS: ASCORBIC ACID 1,000 MG TAB PO SCH (09:13)
[2020-07-04] MEDS: CHOLECALCIFEROL (VITD3) 2,000 UNIT CAP PO SCH (09:13)
--- NOTE | 2020-07-04 10:00 | NUR ---
INCENTIVE SPIROMETER PT IS USING INCENTIVE SPIROMETER 10 X EVERY HOUR EXCEEDS ABOVE 1400, TOLERATED WELL
--- NOTE | 2020-07-04 11:45 | NUR ---
DR VEGA IS HERE FOLLOWING UP ON PT, WITH A NEW ORDERS TO TRANSFER PT TO [facility]
--- NOTE | 2020-07-04 12:11 | NUR ---
PAGE CUSTOMER SERVICE OPERATOR PIG MACHINE SUPERVISOR REGARDING PATIENT'S TRANSFER
--- NOTE | 2020-07-04 12:30 | NUR ---
ELLI FROM [employer] CALLED BACK, MADE AWARE OF THE ACUTE TO ACUTE TRANSFER TO [place]
[2020-07-04 13:00] VITALS: BP 114/77
--- NOTE | 2020-07-04 14:48 | NUR ---
SPOKE WITH BILLY REGARDING TRANSFER TO [facility], SAID THAT [facility] IN [facility] HAVE ALL PATIENT'S INFORMATION AND THEY WILL CONTACT ME WHEN BED IS AVAILABLE
--- NOTE | 2020-07-04 14:58 | NUR ---
1430 07/04/20 - Faxed to [facility] at [phone] face sheet, order to transfer to [facility] facility, Med/Surg bed via [facility], H/P, labs, meds, imaging, transfer summary. Contacted [facility] at [phone], spoke to cryptographic vulnerability analyst Caesar, who confirmed receiving all faxed documentation. Per cryptographic vulnerability analyst the rehabilitation case coordinator assigned is Kathya and she will process the request and contact unit with updates. Pending review and bed availability. Informed nurse DB of all info as stated above.
[2020-07-04 17:00] VITALS: BP 109/69
--- NOTE | 2020-07-04 17:12 | NUR ---
CHARGE NURSE MADE AWARE THAT PT IS POSITIVE FOR COVID Addendum: 07/04/20 at 1727 by Alejandra Devries RN WRONG PT
--- NOTE | 2020-07-04 17:25 | NUR ---
PATIENT MADE AWARE OF THE POSITIVE COVID RESULTS, VERY UPSET AND FRUSTRATED, SUPPORT GIVEN TO HER Addendum: 07/04/20 at 1726 by Alejandra Devries RN WRONG PT
--- NOTE | 2020-07-04 17:46 | NUR ---
MARCELINA FROM [facility] IN ADMITTING, CALLED TO GET UPDATE OF PT LABS, AND NO BED AVAILABLE AT THIS TIME, WILL CALL US WHEN SHE HAVE A BED
--- NOTE | 2020-07-04 18:26 | NUR ---
ROOM AIR SATURATION 84% AMBULATED PT IN THE HALLWAYS 25 FEET, THEN BACK TO BED, PT SAT AT 84%,DENIES SHORTNESS OF BREATH OR DIFFICULTY TO CATCH HIS BREATH
--- NOTE | 2020-07-04 18:29 | NUR ---
PT CONTINUE STABLE, CONTINUE MONITORING
--- NOTE | 2020-07-04 19:14 | NUR ---
Opening Shift Note Assumed care of patient, awake, alert and oriented x4, on 4L of oxygen via oxymizer with even and unlabored respirations, no S/S of distress/SOB or pain. Patient able to ambulate independently, bed in lowest locked position, side rails up x2, and call light within reach. Instructed on POC and to call for assist PRN, will continue to monitor for changes Q1hr and PRN.
[2020-07-04 22:00] VITALS: BP 111/75
[2020-07-05 05:00] VITALS: BP 116/65
[2020-07-05] MEDS: InsuLIN REG 1unit/0.01ml Soln (100units/ml) SC SCH ×4 (06:51→17:25)
[2020-07-05] MEDS: ACCU-CHEK COMFORT CURVE STRIP VI SCH ×3 (06:51→17:15)
[2020-07-05] MEDS: BUDESONIDE (INHALATION) 180 MCG IH IN SCH (07:21)
[2020-07-05] MEDS: ALBUTEROL SULF HFA 90MCG INH 200DOSE IN SCH ×2 (07:22→14:26)
--- NOTE | 2020-07-05 07:30 | NUR ---
NASAL CANNULA SWITCH OXYMIZER FOR A NASAL CANNULA 4 L , PT SAT AT 94 %, WE WILL CONTINUE MONITORING
[2020-07-05 08:00] VITALS: BP 95/65
--- NOTE | 2020-07-05 08:00 | NUR ---
ASSESSMENT NOTE PT IS ALERT ORIENTED X4, RESTING IN BED COMFORTABLY, NC 4 L, NO SHORTNESS OF BREATH NOTED, COUGH, DENIES CHEST PAIN 0/10, ABLE TO SELF REPOSITION AND VERBALIS HER NEEDS, CALL LIGHT WITHIN REACH
[2020-07-05 08:37] VITALS: BP 114/74
[2020-07-05 08:42] VITALS: BP 103/66
[2020-07-05] MEDS: CALCIUM CARB 500 MG CHEW TAB PO SCH ×3 (08:47→17:15)
[2020-07-05] MEDS: FAMOTIDINE 20 MG TAB PO SCH (09:24)
[2020-07-05] MEDS: DexAMETHasone SOD PHOS 4 MG/1ML SDV INJ IV SCH (09:24)
[2020-07-05] MEDS: ASCORBIC ACID 1,000 MG TAB PO SCH (09:24)
[2020-07-05] MEDS: levoFLOXacin 500 MG TAB PO SCH (09:24)
[2020-07-05] MEDS: ENOXAPARIN SOD 100 MG/1 ML SYRINGE SC SCH (09:25)
[2020-07-05] MEDS: CHOLECALCIFEROL (VITD3) 2,000 UNIT CAP PO SCH (09:25)
--- NOTE | 2020-07-05 12:29 | NUR ---
Nutrition Followup Note Wt 109.0 kg Pt in isolation for covid, no distress noted awaiting tx. pt is currently on CCHO 60 gm low choles diet with adequate PO of 755 x 4 per RN doc Est energy needs ABW [id number] kcal (20-23kcal/kg ABW) Est protein needs: 90-99g (1.0-1.1g/kg ABW) Will monitor and reassess prn. . Labs: No new labs today POC GLU 121 H BM: Pt with 1 BM yesterday per RN note Skin: BS 21 low risk, full details in daycare director note. PES: Altered nutrition related lab values r.t current chronic medical condition aeb hyperglycemia, mod hypoalb hypocalcemia Decreased nutrient needs r/t adiposity aeb pt`s high BMI of 36.9 kgm2 Comments: will continue to monitor PO intake, skin status. F/u low 3-5 days Rec: 1) refer to CDE oN DC. 2) continue current plan of care
[2020-07-05 12:54] VITALS: BP 104/64
--- NOTE | 2020-07-05 15:40 | NUR ---
1530 07/05/20 - Faxed to [facility] at [phone], face sheet, order for transfer to [facility] bed, transport via [facility], H/p, labs, meds, transfer summary. Pending review and bed availability
--- NOTE | 2020-07-05 16:23 | NUR ---
1605 07/05/20 - Contacted [facility] at [phone], spoke with value analyst Tayla regarding pending transfer to [facility]. Per Tayla, the ed case manager assigned is Kathya, per ROSEY notes she is working on getting an accepting MD at [facility] in [place], there are not available beds in [place] or [place]. [facility] will contact nurse's station with an update later this evening.
[2020-07-05 17:00] VITALS: BP 114/73
--- NOTE | 2020-07-05 17:44 | NUR ---
NETTIE FROM [facility] CALLED REGARDING PATIENTIS TRANSFER WILL BE TRANSFER TO [facility] IN [place] ACCEPTING MD DR ALLY Busch. TELEMETRY FLOOR ROOM # [id number] CHEESE FACTORY WORKER TIME AT 8 PM REPORT # [phone] PLEASE CALL WITH ANY QUESTIONS NETTIE # [phone]
--- NOTE | 2020-07-05 17:50 | NUR ---
PT MADE AWARE OF THE TRANSFER AND THE MECHANICAL APPLICATIONS ENGINEER TIME, VERBALIS UNDERSTANDING
--- NOTE | 2020-07-05 18:15 | NUR ---
CALLED [facility] IN [place] REPORT GIVEN TO CHARITY Enciso RN WITH ALL PATIENT UPDATE ALONG WITH OUR PHONE NUMBER
--- NOTE | 2020-07-05 19:21 | NUR ---
REPORT GIVEN TO NANETTE BOWIE, CONTINUE CARE
--- NOTE | 2020-07-05 19:22 | NUR ---
Opening Shift Note Assumed care of patient, awake, alert and oriented x2, on 5L of oxygen via NC with even and unlabored respirations, no S/S of distress/SOB or pain. Patient able to ambulate independently, bed in lowest locked position, side rails up x2, and call light within reach. Instructed on POC and to call for assist PRN, will continue to monitor for changes Q1hr and PRN.
== END 2020-07-05 21:35 | disposition short-term general hospital (02) | DRG 871 ==
LOC: EDBD 13:52 → ER 13:52 → TELE 15:33 → TELE-EAST 17:40 → TELE-E-ADS 07-02 05:50
PROVIDERS: ADMIT Internal Medicine; ATTEND Internal Medicine
PROC: XW13325 Transfusion of Convalescent Plasma (Nonautologous) into Peripheral Vein, Percutaneous Approach, New Technology Group 5 (ICD-10-PCS; principal; 2020-06-29)
PROC: XW033E5 Introduction of Remdesivir Anti-infective into Peripheral Vein, Percutaneous Approach, New Technology Group 5 (ICD-10-PCS; 2020-06-29)
PROC: XW033E5 Introduction of Remdesivir Anti-infective into Peripheral Vein, Percutaneous Approach, New Technology Group 5 (ICD-10-PCS; 2020-07-03)
DX: A41.89 Other specified sepsis (principal); U07.1 COVID-19; J12.89 Other viral pneumonia; J96.01 Acute respiratory failure with hypoxia; J45.909 Unspecified asthma, uncomplicated; E66.9 Obesity, unspecified; E11.65 Type 2 diabetes mellitus with hyperglycemia; K21.9 Gastro-esophageal reflux disease without esophagitis; Z68.36 Body mass index [BMI] 36.0-36.9, adult; Z86.19 Personal history of other infectious and parasitic diseases; Z91.041 Radiographic dye allergy status; Z91.013 Allergy to seafood; Z91.018 Allergy to other foods
CPT/HCPCS: 36415; 36600; 71045; 80048; 80053; 81001; 82728; 82805; 82962; 83036; 83605; 83880; 84484; 85007; 85025; 85027; 85379; 86141; 86850; 86900; 86901; 87040; 93005; 94640; 96365; 96366; 96368; 96372; 96375; G0378; J0696; J1100; J1815; J1956; J2405; J3490